=== PATIENT | female | born 1975 | race Caucasian/White ===

== ENCOUNTER 2017-10-24 09:40 | Emergency (ER) | payer OTHER ==
[2017-10-24 10:44] VITALS: BP 131/72
--- NOTE | 2017-10-24 11:10 | UC ---
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 and hit her forehead on the mirror It was a forceful injury and she had a forehead contusion since that injury she has had neck pain she has had progressively worsing bilateral arm paresthesias which are worsening when she extends neck no bowel or bladder incontinence - History of Current Complaint Chief Complaint: UCUpperExtremity Stated Complaint: NECK PAIN WC Time Seen by Provider: 10/24/17 10:51 Hx Obtained From: Patient Onset/Duration Of Injury/Symptoms: Weeks Mechanism Of Injury: Sharp Trauma Timing: Constant Onset/Duration: Sudden Onset Severity: Moderate Pain Intensity: 6 Pain Scale Used: 0-10 Numeric Location: Diffuse, Radiates To: - down both arms Character: Aching, Spasmotic Alleviating Factors: Compression Associated Signs & Symptoms: Positive: Negative Related History: Occupational Injury - Allergies/Home Medications Allergies/Adverse Reactions: Allergies Allergy/AdvReac Type Severity Reaction Status Date / Time No Known Allergies Allergy Verified 10/24/17 10:44 Home Medications: Home Medications NK [No Home Medications Reported] 10/24/17 [History Confirmed 10/24/17] PMH/Surg Hx/FS Hx/Imm Hx Previously Healthy: Yes - Surgical History Surgical History: Yes Surgery Procedure, Year, and Place: tubal, t&a, appy - Social History Alcohol Use: Weekly Substance Use Type: None Smoking Status (MU): Light Every Day Tobacco Smoker Type: Cigarettes Cessation Counseling: Patient Advised to Stop Review Of Systems Constitutional: Positive: Negative Skin: Positive: Negative Eyes: Positive: Negative ENT: Positive: Negative Respiratory: Positive: Negative Cardiovascular: Positive: Negative Gastrointestinal: Positive: Negative Genitourinary: Positive: Negative Musculoskeletal: Positive: Arthralgia, Myalgia Neurological: Positive: Paresthesia Psychological: Positive: Negative All Other Systems Reviewed And Are Negative: Yes Physical Exam Triage Information Reviewed: Yes Appearance: Well-Appearing, No Pain Distress, Well-Nourished Vital Signs: Initial Vital Signs Temp 99.5 F 10/24/17 10:37 Pulse 65 10/24/17 10:37 Resp 18 10/24/17 10:37 BP 131/72 10/24/17 10:37 Pulse Ox 99 10/24/17 10:37 Eye Exam: Normal Eyes: Positive: Conjunctiva Clear ENT: Positive: Hearing grossly normal. Negative: Nasal congestion, Nasal drainage, Muffled voice, Hoarse voice Neck: Positive: Supple, Nontender, Other: - painful but full ROM Respiratory: Positive: Lungs clear, Normal breath sounds, No respiratory distress, No accessory muscle use Cardiovascular: Positive: RRR, No Murmur Musculoskeletal: Positive: ROM Intact, No Edema Neurological: Positive: Alert, Other: - normal UE strength and reflexes Psychological Exam: Normal Skin Exam: Normal Diagnostics - Radiology No standard instances Xray Interpretation: Positive (See Comments) - : DEGENERATIVE CHANGES C5-C6 WITH BILATERAL FORAMINAL NARROWING. SUGGEST MR IMAGING IF THERE ARE RADICULAR SYMPTOMS Radiology Interpretation Completed By: Radiologist Neck Pain Course/Dx - Differential Dx/Diagnosis Provider Diagnoses: cervical radiculopathy. DDD Discharge - Discharge Plan Condition: Stable Disposition: HOME Patient Education Materials: Cervical Radiculopathy (ED) Referrals: Bronson Bowser MD [Medical Doctor] - 1 Week Additional Instructions: soft collar when sitting/standing aleve 1-2 twice daily I suggest you follow up with a neurosurgeon for further investigation
--- NOTE | 2017-10-24 11:28 | RAD ---
INDICATION: Neck pain COMPARISON: None TECHNIQUE: Routine five-view imaging was performed FINDINGS: Bones: There are no acute bony findings. There are osteocytic changes consisting of degenerative disc disease at C5-C6 with mild narrowing, anterior vertebral spurring, and uncinate process spurring with resultant bilateral neuroforaminal narrowing. Craniocervical junction: The odontoid and atlantodental interval are normal. Alignment: There is mild reversal normal cervical lordosis. Disc spaces: The remaining disc spaces are well-maintained Soft tissues: The prevertebral soft tissues are normal. IMPRESSION: DEGENERATIVE CHANGES C5-C6 WITH BILATERAL FORAMINAL NARROWING. SUGGEST MR IMAGING IF THERE ARE RADICULAR SYMPTOMS
== END 2017-10-24 11:57 | disposition home or self-care (01) ==
LOC: UCCORT 09:40
DX: M54.12 Radiculopathy, cervical region (principal); M50.322 Other cervical disc degeneration at C5-C6 level; F17.210 Nicotine dependence, cigarettes, uncomplicated
CPT/HCPCS: 72050; 99202; G0463

== ENCOUNTER 2018-01-20 07:34 | Observation (INO) | payer OTHER ==
[~2018-01-20 07:34] MED LIST: Buffered Lidocaine 0.9% SYRIN* 5 ML/SYR SYRINGE INTRADERM ONE; Scopolamine 1.5 mg* PATCH TRANSDERM ONE
[2018-01-20] MEDS ORDERED: Scopolamine 1.5 mg* PATCH ONE (08:04)
[2018-01-20] MEDS ORDERED: ceFAZolin 2 GM PREMIX (*) 2 GM/50 ML BAG IVPB ONE (08:04)
[2018-01-20] MEDS ORDERED: Lidocaine 1% MPF wEPI 200,000* 30 ML SDV ONE (08:28)
[2018-01-20] MEDS ORDERED: Bacitracin IV* 50,000 UNITS INJ ONE ×2 (08:28→09:02)
[2018-01-20] MEDS ORDERED: Thrombin 5,000 UNITS* 1 APPLIC KIT - topical use - TOPICAL ONE ×2 (08:28→09:02)
[2018-01-20] MEDS ORDERED: Sodium Citrate/Citric Acid* 15 ML UDC ONE (08:35)
[2018-01-20] MEDS ORDERED: Metoclopramide TAB* 10 MG ONE (08:35)
[2018-01-20] MEDS ORDERED: fentaNYL* 50 MCG/ML 2 ML VIAL (100 MCG VIAL) ONE ×2 (09:16→11:28)
[2018-01-20] MEDS ORDERED: Rocuronium* 10 MG/ML VIAL ONE (09:16)
[2018-01-20] MEDS ORDERED: Propofol* 10 MG/ML 20 ML BTL IV PUSH ONE (09:20)
[2018-01-20] MEDS ORDERED: Lidocaine 2% PF * 5 ML VIAL ONE (09:20)
[2018-01-20] MEDS ORDERED: Dexamethasone IV* 4 MG/ML 1 ML (4 MG) ONE (09:20)
[2018-01-20] MEDS ORDERED: EPHEDrine (Pressors)* 50 MG/ML VIAL ONE (09:56)
[2018-01-20] MEDS ORDERED: Acetaminophen TAB* 325 MG PO PRN ×2 (10:00→11:28)
[2018-01-20] MEDS ORDERED: DiMENhydriNATE IV* 50 MG/ML VIAL IV PUSH PRN (10:00)
[2018-01-20] MEDS ORDERED: Ondansetron INJ* 2 MG/ML VIAL IV PRN (10:00)
[2018-01-20] MEDS ORDERED: Naloxone* 0.4 MG/ML 1 ML VIAL IV PRN (10:00)
[2018-01-20] MEDS ORDERED: Ondansetron 40 MG VIAL* 2 MG/ML 20 ML VIAL IV PRN (11:28)
[2018-01-20] MEDS: fentaNYL* 50 MCG/ML 2 ML VIAL (100 MCG VIAL) IV PRN ×2 (11:30→12:04)
[2018-01-20] MEDS ORDERED: Mouth Piece, Nicotine* 1 EACH CARTRIDGE INH PRN (11:32)
[2018-01-20] MEDS ORDERED: Nicotine Inhaler* 10 MG AMP INH PRN (11:32)
[2018-01-20] MEDS ORDERED: oxyCODONE TAB* 5 MG TAB ONE ×2 (11:51→12:24)
[2018-01-20] MEDS: oxyCODONE TAB* 5 MG TAB PO PRN ×2 (11:51→12:25)
--- NOTE | 2018-01-20 11:53 | RAD ---
Indication: Anterior cervical discectomy. 4 views of the cervical spine taken in the operating room are reviewed. Film #1 demonstrates localization of the C7 vertebra. Film #2 demonstrates localization with a metallic probe of the C5-C6 interspace. Film #3 and 4 demonstrates anterior fusion with a plate and screws through C4, C5 and C6. IMPRESSION: Intraoperative control films obtained.
[2018-01-20] MEDS: Nicotine PATCH 21 MG/24 HR* PATCH TRANSDERM SCH (13:47)
[2018-01-20] MEDS ORDERED: Benzocaine/Menthol LOZ* 1 LOZENGE PO PRN (16:50)
[2018-01-20] MEDS: HYDROcodone/ACETAMIN 5-325 MG* 1 TAB PO PRN ×2 (17:51→22:29)
[2018-01-21] MEDS: HYDROcodone/ACETAMIN 5-325 MG* 1 TAB PO PRN ×2 (04:03→09:32)
[2018-01-21] MEDS ORDERED: Nicotine Patch Removal NOTE FOLLOW UP SCH (06:00)
--- NOTE | 2018-01-21 07:07 | PN ---
Progress Note - Progress Note Date of Service: 01/21/18 SOAP: Subjective: []Doing well Pre op pain better Neck soft Objective: []Neuro intact Drain removed Assessment: []Satis post op course Plan: []D/C today D/C Instructions given
[2018-01-21 08:36] VITALS: BP 103/57
[2018-01-21] MEDS: Nicotine PATCH 21 MG/24 HR* PATCH TRANSDERM SCH (09:28)
[2018-01-23] MEDS ORDERED: Scopolamine PATCH Remove* 1 NOTE MISC PATCH OFF ONE (06:00)
--- NOTE | 2018-01-23 19:46 | OP ---
DATE OF OPERATION: 01/20/18 - ROOM #331 DATE OF : 71 SURGEON: Bronson Bowser MD. SILK EXAMINER: JERED Miller. ANESTHESIA: General. PRE-OP DIAGNOSIS: Cervical spondylosis C4-5, C5-6. POST-OP DIAGNOSIS: Cervical spondylosis C4-5, C5-6. OPERATIVE PROCEDURE: Anterior cervical diskectomy and fusion C4-5, C5-6 with placement of biomechanical devices at C4-5, C5-6 with anterior instrumentation. DESCRIPTION OF PROCEDURE: After satisfactory general anesthesia was obtained, the patient was placed on the operating table in the supine position with the head supported on a horseshoe headrest and the neck slightly extended. The anterior aspect of the cervical spine was clipped, prepped, and draped in sterile manner for anterior cervical exposure, and a skin incision was outlined over the C5 vertebral body as assisted with a local area network systems adminstrator radiograph. An incision was begun at the midline and extended to the right side, distance of 3 cm. This incision was infiltrated with 1% Xylocaine with epinephrine, after which carried down sharply through the subcutaneous tissues. A superiorly and inferiorly based subcutaneous flap was then fashioned and the platysma muscle divided along the direction of its fibers. Utilizing a combination of sharp and blunt dissection, a dissection plane was carried out between the sternocleidomastoid and strap muscles down to the anterior aspect of the spine. An additional x-ray was obtained verifying proper interspace localization after which the initial step in the procedure was a decompression at the C4-5 level. The anterior two-thirds of disk material was decompressed utilizing a combination of Midas Uvaldo drill, angled curettes, and pituitary rongeurs. [place] distractor pins were then placed in C4 and C5 vertebral bodies and gentle disk space distraction applied. At this point, the operating microscope was brought into the field and the remainder of the procedure done under microscopic visualization. Projecting back posteriorly was a significant spur coming off the superior aspect of C5. The spur was decompressed utilizing combination of Midas Uvaldo drill and [place] rongeurs. This was carried back until normal dura was encountered. At the conclusion of the decompression, a nerve hook would go out readily with both C5 nerve roots. The interspace was then prepared for receipt of a PEEK graft which was filled with bony matrix and measured 7 mm in height at this level. Attention was then directed to the C5-6 level where a similar process was carried out. The anterior two-thirds of disk was removed with the Midas Uvaldo, curettes, and pituitaries. [place] distractor pins were then placed in the C5 and C6 vertebral bodies and gentle disk space distraction applied. The pathology at this level was more pronounced with a much smaller disk space and more degenerative changes. The decompression was carried back until normal dura was encountered. At the conclusion of the decompression, a nerve hook would go out readily with both C6 nerve roots. The interspace was prepared for receipt of a 6 mm PEEK graft filled with bony matrix and slightly counter-sunk. A Br[employer] Peak [employer] Zevo plate was then selected to span from C4 to C6 and was secured into position with 13 mm self-drilling screws. A post-construct x-ray showed the C5 screws to be somewhat inferior in location and these screws were repositioned and angled more superiorly into a more satisfactory alignment. After assuring adequate hemostasis, the wound was thoroughly irrigated after which a drain was placed in the prevertebral space and tunneled out toward the right side. The subcutaneous tissues were then reapproximated with 3-0 Vicryl and the skin closed with Steri-Strips. The estimated blood loss was less than 50 cc and the final sponge, padding, and needle counts were correct. The patient was taken to the recovery room extubated, and in stable condition. [id number]/[facility] #: [id number] FREDDIE
--- NOTE | 2018-01-24 08:53 | DS ---
DISCHARGE SUMMARY: DATE OF ADMISSION: 01/20/18 DATE OF DISCHARGE: 01/21/18 PROVIDER: Dr. Bowser.* (DICTATED BY JERED HOLGUIN) DISCHARGE DIAGNOSIS: Cervical spondylosis. SPECIAL PROCEDURE: Anterior cervical diskectomy and fusion, C4-5 and C5-6, with anterior instrumentation. HOSPITAL COURSE: This 42-year-old female was seen in the office with a symptomatic cervical spondylosis. She was myelopathic on physical exam. She underwent several months of conservative treatments, all of which failed to improve her symptoms. She then elected to proceed with surgical intervention. On the day of admission, she was taken to surgery where under general anesthesia , an anterior cervical diskectomy and fusion at C4-5 and C5-6 operation was carried out. Postoperatively, she was feeling well and preoperative symptoms were improved. She was ambulating independently and she was eating soft foods and drinking without difficulty. Pain was well controlled with oral pain medications. On the first postoperative day, the wound drain was discontinued and the patient was discharged home to the care of her family. The patient will be seen in office for followup in 2 weeks. DISCHARGE INSTRUCTIONS: Wound care and activity level were discussed with the patient and provided. DISCHARGE MEDICATIONS: Hydrocodone/acetaminophen 5/325 mg 2 tabs by mouth every 4 hours as needed for pain. JERED HOLGUIN [id number]/[facility] #: [id number] MTDD
== END 2018-01-21 09:45 | disposition home or self-care (01) ==
LOC: INTOOBSV 07:34 → AA 07:34 → SSU 13:19
PROVIDERS: ADMIT Neurological Surgery; ATTEND Neurological Surgery
PROC: 0RG10A0 Fusion of Cervical Vertebral Joint with Interbody Fusion Device, Anterior Approach, Anterior Column, Open Approach (ICD-10-PCS; 2018-01-20)
PROC: 0RB30ZZ Excision of Cervical Vertebral Disc, Open Approach (ICD-10-PCS; principal; 2018-01-20 09:30)
DX: M47.892 Other spondylosis, cervical region (principal); M50.021 Cervical disc disorder at C4-C5 level with myelopathy; M50.222 Other cervical disc displacement at C5-C6 level; F17.210 Nicotine dependence, cigarettes, uncomplicated
CPT/HCPCS: 72020; 81025; 96374; A9270-GY; C1713; C1776; G0378; J0690; J1100; J2001; J2704; J3010